=== PATIENT | female | born 1995 | race African-American/Black ===

== ENCOUNTER 2022-07-28 21:46 | Emergency (ER) | payer OTHER ==
[2022-07-28 22:32] VITALS: BP 148/101; PULSE 85; RESP 18; TEMP 98.4; BMI 33.3
[2022-07-28] MEDS ORDERED: IBUPROFEN 600 MG TABLET (FP) PO ONE ×2 (23:33→23:55)
[2022-07-28] MEDS ORDERED: TETRACAINE 0.5% OPHTH SOLN 2 ML BOTTLE OS ONE (23:41)
[2022-07-28] MEDS ORDERED: FLUORESCEIN NA 1 EA STRIP OS ONE (23:41)
[2022-07-28] MEDS ORDERED: FLUORESCEIN NA 1 EA STRIP ONE (23:43)
[2022-07-28] MEDS ORDERED: TETRACAINE 0.5% OPHTH SOLN 2 ML BOTTLE ONE (23:44)
[2022-07-28] MEDS ORDERED: ERYTHROMYCIN 0.5% OPHTHALMIC OINTMENT 3.5 GM TUBE ONE (23:55)
[2022-07-28] MEDS ORDERED: ERYTHROMYCIN 0.5% OPHTHALMIC OINTMENT 3.5 GM TUBE OS ONE (23:55)
[2022-07-29] MEDS ORDERED: NEOMY SULF/BACITRA/POLYMYXIN B OPHTHALMIC OINTMENT 3.5 GM OS ONE
[2022-07-29] MEDS ORDERED: AMOX TR/POT CLAV 875MG/125MG TABLETS (FP) PO ONE (00:23)
[2022-07-29] MEDS ORDERED: AMOX TR/POT CLAV 875MG/125MG TABLETS (FP) ONE (00:33)
== END 2022-07-29 00:55 | disposition home or self-care (01) ==
LOC: JER 21:46
DX: J01.10 Acute frontal sinusitis, unspecified (principal); H10.31 Unspecified acute conjunctivitis, right eye
CPT/HCPCS: 0241U-QW; 71046-TC-FY; 87651; 99284-25